=== PATIENT | male | born 1960 | race Caucasian/White ===

== ENCOUNTER 2020-12-07 21:10 | Emergency (ER) | payer MEDICARE, OTHER ==
[2020-12-07 21:33] LABS: ABSOLUTE BASOPHILS # (AUTO) 0.1 10^3/uL (0.0-0.2); ABSOLUTE EOSINOPHILS # (AUTO) 0.2 10^3/uL (0.0-0.6); ABSOLUTE LYMPHOCYTES (AUTO) 1.7 10^3/uL (0.5-4.7); ABSOLUTE MONOCYTES (AUTO) 0.5 10^3/uL (0.1-1.4); ABSOLUTE NEUT (AUTO) 3.8 10^3/uL (1.7-8.2); BASOPHILS % (AUTO) 1.3 % (0-2); EOSINOPHILS % (AUTO) 2.6 % (0-6); HEMATOCRIT 44.5 % (37.9-51.0); HEMOGLOBIN 15.2 g/dL (13.5-17.0); LYMPHOCYTES % (AUTO) 26.8 % (13-45); MEAN CORPUSCULAR HEMOGLOBIN 29.1 pg (27.0-33.4); MEAN CORPUSCULAR HGB CONC 34.1 g/dL (32.0-36.0); MEAN CORPUSCULAR VOLUME 85 fl (80-97); MONOCYTES % (AUTO) 7.4 % (3-13); PLATELET COUNT 225 10^3/uL (150-450); RED BLOOD COUNT 5.22 10^6/uL (4.35-5.55); RED CELL DISTRIBUTION WIDTH 13.8 % (11.5-14.0); SEGMENTED NEUTROPHILS % (AUTO) 61.9 % (42-78); TOTAL CELLS COUNTED % (AUTO) 100 %; WHITE BLOOD COUNT 6.2 10^3/uL (4.0-10.5)
--- NOTE | 2020-12-07 21:39 | RADIOLOGY REPORT (SQ) ---
EXAM DESCRIPTION: CT HEAD WITHOUT IV CONTRAST COMPLETED DATE/TME: 12/07/2020 21:18 CLINICAL HISTORY: 60 years, Male, aloc COMPARISON: None. TECHNIQUE: Axial images without IV contrast. Sagittal coronal reconstruction Images stored on PACS. All CT scanners at this facility use dose modulation, iterative reconstruction, and/or weight based dosing when appropriate to reduce radiation dose to as low as reasonably achievable (ALARA). FINDINGS: Normal size ventricles. No suspicious intra-axial or extra-axial abnormality. Early atherosclerotic disease. 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 Mild midline cerebellar atrophy. Paranasal sinuses, mastoid air cells and bony calvarium are unremarkable. IMPRESSION: 1. No acute findings.
--- NOTE | 2020-12-07 21:56 | RADIOLOGY REPORT (SQ) ---
EXAM DESCRIPTION: XR CHEST 1 VIEW COMPLETED DATE/TME: 12/07/2020 21:21 CLINICAL HISTORY: 60 years, Male, STROKE EXAM DESCRIPTION: CHEST SINGLE VIEW CLINICAL HISTORY: STROKE COMPARISON: None. FINDINGS: Single view of the chest is submitted. Cardiac silhouette is normal. There is subtle consolidation at the medial lung bases. No other focal parenchymal or pleural disease. There is no significant pulmonary vascular engorgement. IMPRESSION: Subtle bilateral consolidation.
--- NOTE | 2020-12-07 22:37 | ER Document Report ---
Entered by JCARLOS ANGELES SCRIBE 12/07/202112 Acting as scribe for:MANAS FARRELL DO ED General - General Stated Complaint: ALTERED MENTAL STATUS Information source: Patient, Emergency Med Personnel Notes: This 60 year old male patient presents to the ED with arrival via EMS. EMS personnel states patient drove from [place] today and around 8:30 pm was less responsive to family, and EMS was called. EMS states the chief complaint was dizziness and patient was responsive en route. Family gave history of 7 CVA's, patient is not compliant with medications, and denies drug or alcohol abuse. EMS states patient leaned on his left when stood up. EMS reports inconclusive exam, with left sided weakness that changed to right sided weakness after x2 neuro exams. Negative rapid covid en route, and BGL 106. Patient states he began driving from [place] last night and arrived today. Patient states he is very tired, has been dizzy with chest pain to the center of his chest, and generally weak. Patient states this could be related to his left shoulder spider bite x1 month ago and has taken antibiotics. Patient reports CAD with x8 stents, and multiple mini strokes with no deficits. Patient reports covid exposure from his girlfriends parents but tested negative with EMS rapid test. Past Medical History - General Information source: Patient, Emergency Med Personnel - Social History Smoking Status: Unknown if Ever Smoked Family History: Reviewed & Not Pertinent - Past Medical History Cardiac Medical History: Reports: Hx Coronary Artery Disease Neurological Medical History: Reports: Hx Cerebrovascular Accident Past Surgical History: Reports: Hx Coronary Stent - x8 Review of Systems - Review of Systems Constitutional: See HPI, Weakness EENT: No symptoms reported Cardiovascular: See HPI, Chest pain, Dizziness Respiratory: No symptoms reported Gastrointestinal: No symptoms reported Genitourinary: No symptoms reported Male Genitourinary: No symptoms reported Musculoskeletal: No symptoms reported Skin: See HPI Hematologic/Lymphatic: No symptoms reported Neurological/Psychological: See HPI, Weakness -: Yes All other systems reviewed and negative Physical Exam - Vital signs Vitals: Pulse Resp BP Pulse Ox 72 14 143/105 H 97 12/07/20 21:13 12/07/20 21:13 12/07/20 21:13 12/07/20 21:13 - General General appearance: Alert - HEENT Head: Normocephalic, Atraumatic Eyes: Normal Pupils: PERRL - Respiratory Respiratory status: No respiratory distress Chest status: Nontender Breath sounds: Normal Chest palpation: Normal - Cardiovascular Rhythm: Regular Heart sounds: Normal auscultation Murmur: No - Abdominal Inspection: Normal Distension: No distension Bowel sounds: Normal Tenderness: Nontender - Extremities General upper extremity: Normal inspection. No: Edema General lower extremity: Normal inspection. No: Edema - Neurological Neuro grossly intact: Yes Cognition: Normal Orientation: AAOx4 Notes: Speech is clear. Able to flex and extend bilateral hands. Uncooperative with neuro exam. No focal weakness. - Psychological Associated symptoms: Normal affect, Normal mood - Skin Skin Temperature: Warm Skin Moisture: Dry Notes: 3 cm erythematous area to the left deltoid. Course - Re-evaluation Re-evalutation: 12/08/20 01:17 MDM Pleasant 60 year arrived as stroke alert. EMS was called because he was "passed out" on the hotel bed. He was very tired from the travel from [place] a [address] He denies etoh or drug use. He has had some covid exposure. Since his history had that of TIA and CVA and he had an equivical Neuro exam - weak on left and then on right - EMS called a stroke alert. Aside from being tired here and weak in general he had a normal exam. For this reason I calculated a NIHSS of 0 and while TPA was considered the pt had no evidence of acute cva and therefore was not a cadidate for TPA. He ambulates in the blood without dififculty with me, speaks clearly and tells me he is looking forward to returning to his motel to sleep. I feel this is reasonable. As he was a close contact of covid pt I will still encourage him to isolate. - Vital Signs Vital signs: Temp Pulse Resp BP Pulse Ox 63 13 106/93 H 98 12/07/20 22:45 12/08/20 00:31 12/08/20 00:31 12/08/20 00:31 - Laboratory Results Result Diagrams: 12/07/20 21:05 12/07/20 21:50 Laboratory Results Interpreted: 12/07/20 12/08/20 21:50 00:00 Anion Gap 3 L Urine Protein 30 H Urine Ketones TRACE H Urine Urobilinogen 4.0 H Ur Leukocyte Esterase TRACE H Critical Laboratory Results Reviewed: No Critical Results - Radiology Results Critical Radiology Results Reviewed: No Critical Results - EKG Interpretation by Me EKG shows normal: Sinus rhythm Rate: Normal - NSR NL axis [address] elevation of depression my interpretation. Discharge - Discharge Clinical Impression: Weakness, COVID-19 Condition: Stable Disposition: HOME, SELF-CARE Instructions: COVID-19 Guidance for Persons Under Investigation, Family Physicians / Practices Additional Instructions: Rest, be sure your are well rested before driving. Return here for chest pain, shortness of breath or other problems or concerns. Stop smoking. Take 325 mg aspirin daily Call a doctor on the referral list to schedule follow up. Since you were around family with Covid + you should self isolate for the next 2 weeks. Your covid test here was negative. I personally performed the services described in the documentation, reviewed and edited the documentation which was dictated to the scribe in my presence, and it accurately records my words and actions.
[2020-12-07 22:42] LABS: ALKALINE PHOSPHATASE 64 U/L (38-126); ASPARTATE AMINO TRANSFERASE 23 U/L (17-59); BILIRUBIN,DIRECT 0.2 mg/dL (0.0-0.4); BILIRUBIN,TOTAL 0.5 mg/dL (0.2-1.3); BLOOD UREA NITROGEN 20 mg/dL (7-20); CALCIUM 9.2 mg/dL (8.4-10.2); CARBON DIOXIDE 28 mmol/L (22-30); CHLORIDE 107 mmol/L (98-107); CREATINE KINASE 122 U/L (55-170); GLUCOSE 89 mg/dL (75-110); POTASSIUM 4.3 mmol/L (3.6-5.0); TOTAL PROTEIN 6.7 g/dL (6.3-8.2)
[2020-12-07 22:49] LABS: ANION GAP 3 (5-19)
[2020-12-07] MEDS ORDERED: NORMAL SALINE 1000 ML 1,000 ML IV ONE (23:39)
[2020-12-08 00:25] LABS: APPEARANCE,URINE CLEAR; BILIRUBIN,URINE NEGATIVE (NEGATIVE); COLOR,URINE YELLOW; GLUCOSE, URINE NEGATIVE (NEGATIVE); KETONES,URINE TRACE mg/dL (NEGATIVE); LEUKOCYTE ESTERASE,URINE TRACE (NEGATIVE); NITRITE,URINE NEGATIVE (NEGATIVE); PROTEIN,URINE 30 mg/dL (NEGATIVE); URINE SPECIFIC GRAVITY 1.027
[2020-12-08 00:36] LABS: URINE AMPHETAMINES SCREEN NEGATIVE; URINE BARBITURATES SCREEN NEGATIVE; URINE BENZODIAZEPINES SCREEN NEGATIVE; URINE COCAINE SCREEN NEGATIVE; URINE MARIJUANA (THC) SCREEN NEGATIVE; URINE METHADONE SCREEN NEGATIVE; URINE PHENCYCLIDINE SCREEN NEGATIVE
[2020-12-08 02:21] VITALS: BP 118/94
--- NOTE | 2020-12-08 07:24 | EKG REPORT ---
SEVERITY:- NORMAL ECG - SINUS RHYTHM : Confirmed by: Srini Duran MD 08-Dec-2020 07:24:07
== END 2020-12-08 02:23 | disposition home or self-care (01) ==
LOC: ER 21:10
DX: U07.1 COVID-19 (principal); R53.1 Weakness; R41.82 Altered mental status, unspecified; R42 Dizziness and giddiness; R07.9 Chest pain, unspecified; I25.10 Atherosclerotic heart disease of native coronary artery without angina pectoris
CPT/HCPCS: 93005; 99285; 96360; 36415; 82962; 80307 ×2; 82550; 84443; 85025; 80053; 81001; 84484; 71045; 70450; 93010; J7030